=== PATIENT | female | born 1955 | race Caucasian/White ===

== ENCOUNTER 2017-11-29 12:55 | Outpatient (REF) | payer BC, SELFPAY ==
[2017-11-29 18:59] LABS: HCT 42.7 % (36.0-46.0); HGB 13.9 g/dL (12.0-15.5); Mean Corp. HGB Concentration 32.6 g/dL (32.0-36.0); Mean Corpuscular Hemoglobin 29.1 pg (27.0-33.0); Mean Corpuscular Volume 89.5 fL (80-95); Mean Platelet Volume 10.8 fL (8.0-11.0); Platelet Count 291 x1000/uL (130-400); RBC 4.77 m/cumm (4.00-5.20); RBC Distribution Width 12.8 % (11.7-14.6); White Blood Cell Count 7.68 k/cumm (4.4-10.8)
[2017-11-29 19:03] LABS: Prothrombin Time 9.3 sec (9.3-10.8)
[2017-11-29 19:08] LABS: Anion Gap 8.5 mmol/L (3-11); BUN 19 mg/dL (7-18); CO2 26.5 mmol/L (21.0-32.0); CREATININE 0.69 mg/dL (0.55-1.02); Chloride 104 mmol/L (98-107); Glucose 105 mg/dL (70-100); LDL CHOLESTEROL 134 mg/dL (<100); Potassium 4.1 mmol/L (3.5-5.1); Sodium 139 mmol/L (136-145)
== END 2017-11-29 13:15 ==
LOC: NCHCN 12:55
PROVIDERS: PCP Internal Medicine; Visit Provider Internal Medicine
DX: I80.00 Phlebitis and thrombophlebitis of superficial vessels of unspecified lower extremity (principal)
CPT/HCPCS: 80048; 83721; 85027; 85610

== ENCOUNTER 2018-03-14 18:07 | Outpatient (REF) | payer BC, SELFPAY ==
--- NOTE | 2018-03-14 16:15 | PAPFT_PTH ---
PATIENT: Louise Hawkins I LOC: [facility] U#:[id number] AGE/SX: 62/F ROOM: RE03/14/[address]: Benji Gutiérrez : 1955 BED: DIS: 03/14/2018 SPEC #: [id number] RECD: 03/14/18 18:18 STATUS: СВЕТЛАНА REQ #: [id number] CARLOS: 03/14/18 16:[address]: Benji Gutiérrez DEPT: [facility] Cytology RECD BY: Lisandra Nunes Tissues: 1 - CX/ENDOCX FOR PAP SMEARS Procedures: PAP THIN PREP/UVM Screening HPV DNA PROBE Comments: [id number]
[2018-03-14 18:49] LABS: HCT 41.9 % (36.0-46.0); HGB 13.5 g/dL (12.0-15.5); Mean Corp. HGB Concentration 32.2 g/dL (32.0-36.0); Mean Corpuscular Hemoglobin 28.9 pg (27.0-33.0); Mean Corpuscular Volume 89.7 fL (80-95); Mean Platelet Volume 10.7 fL (8.0-11.0); Platelet Count 266 x1000/uL (130-400); RBC 4.67 m/cumm (4.00-5.20); RBC Distribution Width 12.9 % (11.7-14.6); White Blood Cell Count 7.28 k/cumm (4.4-10.8)
[2018-03-14 19:06] LABS: PTT Activated 23.5 sec (21.0-31.4); Prothrombin Time 9.9 sec (9.3-11.0)
[2018-03-14 19:07] LABS: Anion Gap 8.4 mmol/L (3-11); BUN 17 mg/dL (7-18); CO2 29.6 mmol/L (21.0-32.0); CREATININE 0.77 mg/dL (0.55-1.02); Chloride 101 mmol/L (98-107); Glucose 94 mg/dL (70-100); Potassium 3.8 mmol/L (3.5-5.1); Sodium 139 mmol/L (136-145); TSH 3.55 uIU/mL (0.358-3.74)
== END 2018-03-14 18:27 ==
LOC: NCHCN 18:07
PROVIDERS: PCP Internal Medicine; Visit Provider Internal Medicine
DX: Z00.00 Encounter for general adult medical examination without abnormal findings (principal); N92.0 Excessive and frequent menstruation with regular cycle; I87.2 Venous insufficiency (chronic) (peripheral); Z12.4 Encounter for screening for malignant neoplasm of cervix; Z11.51 Encounter for screening for human papillomavirus (HPV)
CPT/HCPCS: 80048; 85027; 88142; 84443; 85610; 85730; 87624

== ENCOUNTER 2018-05-14 21:03 | Outpatient (REF) | payer BC, SELFPAY ==
[2018-05-15 18:56] LABS: Result Positive; Specimen Description Feces
== END 2018-05-14 21:23 ==
LOC: NCHCN 21:03
PROVIDERS: PCP Internal Medicine; Visit Provider Internal Medicine
DX: R19.7 Diarrhea, unspecified (principal)
CPT/HCPCS: 87324; 87798

== ENCOUNTER 2019-12-04 19:50 | Outpatient (REF) | payer MEDICARE, BC, SELFPAY ==
[2019-12-04 19:31] LABS: Calculated LDL 139 mg/dL (<100); Cholesterol 220 mg/dL (<200); Glucose 102 mg/dL (74-106); HDL Cholesterol 72 mg/dL (40-60); Triglyceride 49 mg/dL (<150)
== END 2019-12-04 20:10 ==
LOC: NCHCN 19:50
PROVIDERS: PCP Internal Medicine; Visit Provider Internal Medicine
DX: E78.00 Pure hypercholesterolemia, unspecified (principal)
CPT/HCPCS: 80061; 82947; 84443

== ENCOUNTER 2020-11-23 12:37 | Outpatient (REF) | payer MEDICARE, BC, SELFPAY ==
[2020-11-25 11:55] LABS: COVID-19 RT-PCR UVMMC Result Negative (Negative)
== END 2020-11-23 12:38 | disposition home or self-care (01) ==
LOC: NCHCN 12:37
PROVIDERS: PCP Internal Medicine; Referring Provider Internal Medicine; Visit Provider Internal Medicine
DX: Z20.822 Contact with and (suspected) exposure to COVID-19 (principal)
CPT/HCPCS: U0003

== ENCOUNTER 2021-06-09 18:47 | Outpatient (REF) | payer MEDICARE, SELFPAY ==
[2021-06-09 19:44] LABS: Glucose 95 mg/dL (74-106)
[2021-06-13 10:43] LABS: Hepatitis C Ab w Rflx HCV PCR Negative (Negative)
== END 2021-06-09 18:48 | disposition home or self-care (01) ==
LOC: NCHCN 18:47
PROVIDERS: PCP Internal Medicine; Visit Provider Internal Medicine
DX: Z13.1 Encounter for screening for diabetes mellitus (principal); Z11.59 Encounter for screening for other viral diseases
CPT/HCPCS: 82947; 86803

== ENCOUNTER 2022-06-29 15:20 | Outpatient (REF) | payer MEDICARE, SELFPAY ==
--- OUTSIDE RECORDS SUMMARY | 2022-06-29 15:22 | XMS_ITS ---
Author Name Angel Bright Address [address] [place], [place] [id number] 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 392410987 ALLERGIES Substance Reaction Event Type Date Status Amoxicillin Unknown Drug Allergy Mar, Active ENCOUNTERS Encounter Location Date Diagnosis N [facility] [address] [place], [place] [id number] Mar, Actinic keratosis L57.0 and Skin exam, screening for cancer Z12.83 [facility] [address] [place], [place] [id number] Mar, Actinic keratosis L57.0 N [facility] [address] [place], [place] [id number] Aug, Actinic keratosis L57.0 [facility] [address] [place], [place] [id number] Aug, Actinic keratosis L57.0 and Neoplasm of unspecified behavior of bone, soft tissue, and skin D49.2 [facility] Otolaryngology [address] [address] [facility] [address] [place], [place] [id number] May, Neoplasm of unspecified behavior of bone, soft tissue, and skin D49.2 and Actinic keratosis L57.0 [facility] Pulmonology [address] [place], [place] [id number] May, IMMUNIZATIONS No Known Immunizations SOCIAL HISTORY Qualifiers Date Never Smoker REASON FOR REFERRAL FUNCTIONAL STATUS PLAN OF CARE Activity Details VITAL SIGNS Height 5 ft 4 in in 2022-03-24 Height 5 ft 4 in in 2021-03-11 Height 5 ft 4 in in 2020-08-30 Height 5 ft 4 in in 2019-09-01 Height 5 ft 4 in in 2019-05-30 Weight 183 lbs 2022-03-24 Weight 184 lbs 2020-08-30 Weight 182 lbs 2019-09-01 Weight 184 lbs 2019-05-30 Heart Rate 64 /min 2022-03-24 Heart Rate 76 /min 2021-03-11 Oximetry 99 2022-03-24 Oximetry 98 2021-03-11 Respiratory Rate 16 /min 2021-03-11 BMI 31.41 kg/m2 2022-03-24 BMI 31.58 kg/m2 2020-08-30 BMI 31.24 kg/m2 2019-09-01 BMI 31.58 kg/m2 2019-05-30 Blood pressure systolic 120 mm Hg Blood pressure diastolic 72 mm Hg 2022-03 MEDICATIONS Medication Instructions Dosage Frequency Start Date End Date Duration Status Psyllium Husk Ac tive Calcium + D 500-1000-40 MG-UNT-MCG Active Nasacort AQ Acti ve Estradiol Active Glucosamine Acti ve MSM Active Vitamin C Active Multi Vitamin - Orally Once a day 1 tablet 24h Active PROCEDURES No Known procedures RESULTS No Results REASON FOR VISIT ENT 1 year check, ENT 1 year check, ENT 6 month check, ENT 1 yr f/u, ENT s/p Efudex treatment (Reason: s/p efudex face/left arm), PFP Est Patient (L), ENT actinic damage/skin changes, TeleMed/zoom video Visit- pt at home with , PFP, New Patient, pre-load Insurance Providers Health Insurance Type Health Plan Insurance Address Health Plan Insurance Phone Health Plan Insurance Name Health Plan Coverage Dates Member ID Patient Relationship to Subscriber Patient Address Patient Phone Patient Name Patient Date of Subscriber ID Subscriber Name Subscriber Date of Group No [place] [employer] [address] [facility] [address] [place] [employer] self Louise Shruthi [id number]
--- OUTSIDE RECORDS SUMMARY | 2022-06-29 15:22 | XMS_ITS | Continuity of Care Document ---
Author Name Unknown Organization [facility] Address [address] [place] [address] Care Team Providers Care Control Engineer Name Role Phone Benji Whitehead Primary Care Physician Encounter [facility] Date(s): 04/17/22 - 04/17/[address] [address] Discharge Disposition: Home or Self Care Attending Physician: Benji Whitehead MD Admitting Physician: Benji Whitehead MD Referring Physician: Benji Whitehead MD Allergies, Adverse Reactions, Alerts Substance Reaction Severity Status amoxicillin Urticaria Unknown Active Immunizations Given and Recorded Vaccine Date Status Refusal Reason SARS-CoV-2 (COVID-19) mRNA-1273 vaccine 06/10/20 R ecorded SARS-CoV-2 (COVID-19) mRNA-1273 vaccine 05/13/20 R ecorded Social History Social History Type Response Sex Female Patient Care team information Care Team Personnel Name: Benji Whitehead MD Position: No Access Member Role: Primary Care Physician Address: Address: [address] [address] [place] Care Team Related Persons Name: BENJI DAO Address: Home
--- OUTSIDE RECORDS SUMMARY | 2022-06-29 15:22 | XMS_ITS | Continuity of Care Document ---
Author Name Unknown Organization [facility] Address [address] [place] [address] Care Team Providers Care Post Framer Name Role Phone Benji Whitehead Primary Care Physician Encounter [facility] Date(s): 04/21/22 - 04/21/[address] [address] Discharge Disposition: Home or Self Care Attending [...] Member Role: Primary Care Physician Address: Address: [id number] [place] [address] Care Team Related Persons Name: BENJI DAO Address: Home
[2022-06-29 19:01] LABS: Anion Gap 5.4 mmol/L (3-11); BUN 14 mg/dL (7-18); CO2 30.6 mmol/L (21.0-32.0); CREATININE 0.8 mg/dL (0.55-1.02); Calcium 9.3 mg/dL (8.5-10.1); Calculated LDL 113 mg/dL (<100); Chloride 104 mmol/L (98-107); Cholesterol 190 mg/dL (<200); Estimated GFR 79.71 (mL/min/1.73m2); Glucose 95 mg/dL (74-106); HDL Cholesterol 67 mg/dL (40-60); Sodium 140 mmol/L (136-145); Triglyceride 53 mg/dL (<150)
== END 2022-06-29 15:21 | disposition home or self-care (01) ==
LOC: NCHCN 15:20
PROVIDERS: PCP Internal Medicine; Visit Provider Internal Medicine
DX: E66.3 Overweight (principal); Z00.00 Encounter for general adult medical examination without abnormal findings
CPT/HCPCS: 80048; 80061; 84443

== ENCOUNTER 2024-02-04 15:56 | Outpatient (REF) | payer MEDICARE, SELFPAY ==
[2024-02-04 20:03] LABS: Bilirubin Negative (Negative); Blood Trace-lysed (Negative); Clarity Clear (Clear); Glucose Negative (Negative); Ketones Negative (Negative); Leukocyte Esterase Moderate (Negative); Nitrite Negative (Negative); Specific Gravity <= 1.005 (1.005-1.025); Urobilinogen 0.2 mg/dL (Up to 0.2)
[2024-02-04 20:14] LABS: Bacteria Rare HPF (Negative); C & S Indicated? Yes; Casts Negative LPF (Negative); Crystals Negative HPF (Negative); Epithelial Cells Rare HPF (Negative); Mucus Negative (Negative); RBC 0-2 HPF (0-2); WBC 20-50 HPF (0-5)
== END 2024-02-04 15:57 | disposition home or self-care (01) ==
LOC: NCHCN 15:56
PROVIDERS: PCP Internal Medicine; Visit Provider Nurse Practitioner Family
DX: R35.0 Frequency of micturition (principal); B96.29 Other Escherichia coli [E. coli] as the cause of diseases classified elsewhere; R82.89 Other abnormal findings on cytological and histological examination of urine
CPT/HCPCS: 87077; 81003; 81015; 87086; 87186

== ENCOUNTER 2024-07-03 12:01 | Outpatient (REF) | payer MEDICARE, SELFPAY ==
[2024-07-03 19:19] LABS: HGB 14.8 g/dL (11.2-15.7); MCH 29.9 pg (27.0-33.0); MCHC 32.2 % (32.0-36.0); MCV 93 fL (80-95); MPV 10.2 fL (8.0-11.0); Platelet Count 283 10^3/uL (130-400); RBC 4.95 10^6/uL (3.93-5.22); RDW 12.2 % (11.7-14.6); RDW-SD 41.6 fL
[2024-07-03 19:21] LABS: ESR 23 mm/hr (0-30)
[2024-07-03 19:39] LABS: ALT 22 U/L (14-59); AST 23 U/L (15-37); Albumin 3.6 g/dL (3.4-5.0); Alkaline Phosphatase 86 U/L (46-116); Anion Gap 5.5 mmol/L (3-11); BUN 12 mg/dL (7-18); Bilirubin, Total 0.5 mg/dL (0.2-1.0); CO2 30.5 mmol/L (21.0-32.0); CREATININE 0.8 mg/dL (0.55-1.02); Calcium 9.2 mg/dL (8.5-10.1); Calculated LDL 120 mg/dL (<100); Chloride 104 mmol/L (98-107); Cholesterol 208 mg/dL (<200); Estimated GFR 78.72 (mL/min/1.73m2); Glucose 100 mg/dL (74-106); HDL Cholesterol 73 mg/dL (>or=50); Potassium 4.3 mmol/L (3.5-5.1); Sodium 140 mmol/L (136-145); Triglyceride 75 mg/dL (<150)
[2024-07-03 20:55] LABS: Creatine Kinase 47 U/L (26-192)
== END 2024-07-03 12:02 | disposition home or self-care (01) ==
LOC: NCHCN 12:01
PROVIDERS: PCP Internal Medicine; Visit Provider Internal Medicine
DX: E78.5 Hyperlipidemia, unspecified (principal)
CPT/HCPCS: 80053; 80061; 82550; 85027; 85652

== ENCOUNTER 2024-07-11 15:14 | Outpatient (REF) | payer MEDICARE, SELFPAY ==
--- NOTE | 2024-07-11 14:35 | SKI_PTH ---
PATIENT: Louise Hawkins I LOC: [facility] U#:[id number] AGE/SX: 69/F ROOM: RE07/11/[address]: KATHYA Hu : 1955 BED: DIS: 07/11/2024 SPEC #: [id number] RECD: 07/14/24 12:40 STATUS: СВЕТЛАНА REQ #: [id number] CARLOS: 07/11/24 14:[address]: Angel Bright DEPT: Surgical Specimen RECD BY: Lisandra Nunes ENTERED: 07/14/24 12:40 SP TYPE: JB HINOJOSA DR: Benji Gutiérrez Tissues: 1 - SKIN BIOPSY(SHAVE/PUNCH) Procedures: IMMUNOPEROXIDASE STAIN SKIN LEVEL 4 Comments: [id number]
== END 2024-07-11 15:15 | disposition home or self-care (01) ==
LOC: LBN 15:14
PROVIDERS: PCP Internal Medicine; Visit Provider Physician Assistant
DX: D49.2 Neoplasm of unspecified behavior of bone, soft tissue, and skin (principal); L43.8 Other lichen planus
CPT/HCPCS: 88305; 88361